=== PATIENT | male | born 1985 | race African-American/Black ===

== ENCOUNTER 2016-12-09 15:40 | Emergency (ER) | payer SELFPAY ==
[2016-12-09 16:40] LABS: BASOPHILS 0.2 % (0-2); EOSINOPHILS 6.5 % (0-7); HEMATOCRIT 39.9 % (42.0-54.0); HEMOGLOBIN 13.6 g/dL (13.5-17.5); IMMATURE GRANULOCYTES 0.6 % (0-5); LYMPHOCYTES 44.3 % (15-50); MCH 29.8 pg (26.0-34.0); MCHC 34.1 g/dL (31.0-37.0); MCV 87.5 fL (80.0-100.0); MEAN PLATELET VOLUME 9.3 fL (7.4-10.4); MONOCYTES 6.9 % (2-11); NEUTROPHILS 41.5 % (40-80); PLATELET COUNT 217 10x3/uL (130-400); RBC 4.56 10x6/uL (4.20-6.10); RDW 14.8 % (11.5-14.5)
[2016-12-09 16:56] LABS: ALBUMIN 3.3 g/dL (3.4-5.0); ANION GAP 19.2 mmol/L (8-16); BILIRUBIN - TOTAL 0.46 mg/dL (0.2-1.3); CARBON DIOXIDE 21.3 mmol/L (21.0-32.0); CREATININE - SERUM 1.4 mg/dL (0.6-1.3); MAGNESIUM - SERUM 1.9 mg/dL (1.8-2.4); POTASSIUM - SERUM 3.5 mmol/L (3.5-5.1)
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
== END 2016-12-09 19:43 | disposition other institution (70) ==
LOC: D.ER 15:40 → EDBD 15:40 → D.ER 15:40
PROVIDERS: Emergency Medicine
DX: S81.002A Unspecified open wound, left knee, initial encounter (principal); W34.00XA Accidental discharge from unspecified firearms or gun, initial encounter; Y93.89 Activity, other specified; Y92.89 Other specified places as the place of occurrence of the external cause; N17.9 Acute kidney failure, unspecified